=== PATIENT | female | born 1955 | race Asian ===

== ENCOUNTER 2018-04-28 17:47 | Emergency (ER) | payer OTHER ==
[~2018-04-28] VITALS: Ht 165.1 cm; Wt 68.0 kg
[2018-04-28 18:25] LABS: BASOPHILS % (AUTO) 0 % (0-10); EOSINOPHILS % (AUTO) 0 % (0-10); HEMATOCRIT 39 % (35-52); HEMOGLOBIN 12.4 G/DL (11.5-16.0); LYMPHOCYTES # (AUTO) 1.5 X 10^3 (1.0-4.0); LYMPHOCYTES % (AUTO) 11 % (12-44); MEAN CORPUSCULAR HEMOGLOBIN 28 PG (25-34); MEAN CORPUSCULAR HGB CONC 32 G/DL (32-36); MEAN CORPUSCULAR VOLUME 88 FL (80-99); MONOCYTES # (AUTO) 0.6 X 10^3 (0.0-1.0); MONOCYTES % (AUTO) 4 % (0-12); NEUTROPHILS # (AUTO) 11.9 X 10^3 (1.8-7.8); NEUTROPHILS % (AUTO) 85 % (42-75); PLATELET COUNT 226 10^3/uL (130-400); RED BLOOD COUNT 4.42 10^6/uL (4.35-5.85); RED CELL DISTRIBUTION WIDTH 12.8 % (10.0-14.5); WHITE BLOOD COUNT 14.1 10^3/uL (4.3-11.0)
--- NOTE | 2018-04-28 18:29 | ED GI ---
General Chief Complaint: Abdominal/GI Problems Stated Complaint: NAUSEA/VOMITING/HOT AND COLD FLASHES Nursing Triage Note: N/V/D STARTING TODAY ALONG WITH DIZZINESS. Sepsis Screen: No Definite Risk Source of Information: Patient Exam Limitations: No Limitations History of Present Illness Date Seen by Provider: Apr 28, 2018 Time Seen by Provider: 18:28 Initial Comments To ER with reports of nausea vomiting diarrhea starting today along with dizziness. This began this afternoon. Denies fevers or chills. She has some crampy abdominal pain which is present "not all the time" Timing/Duration: 1-2 Days Severity/Quality: Moderate, Cramping Location: Generalized Abdomen Radiation: No Radiation Activities at Onset: None Associated Symptoms: No Fever/Chills; Nausea/Vomiting Allergies and Home Medications Allergies Coded Allergies: No Known Drug Allergies (Unverified , 04/28/18) Home Medications No Active Prescriptions or Reported Meds Patient Home Medication List Home Medication List Reviewed: Yes Review of Systems Review of Systems Constitutional: see HPI EENTM: No Symptoms Reported Respiratory: No Symptoms Reported Cardiovascular: No Symptoms Reported Gastrointestinal: See HPI, Abdominal Pain; Denies Constipated; Diarrhea, Nausea , Vomiting Genitourinary: No Symptoms Reported Musculoskeletal: no symptoms reported Skin: no symptoms reported Psychiatric/Neurological: No Symptoms Reported Endocrine: No Symptoms Reported Hematologic/Lymphatic: No Symptoms Reported Past Yxsbqvp-Stodqi-Fdbruy Hx Patient Social History Alcohol Use: Denies Use Recreational Drug Use: No Smoking Status: Never a Smoker Recent Foreign Travel: No Contact w/Someone Who Travel: No Recent Infectious Disease Expo: No Past Medical History Surgeries: Yes Respiratory: No Cardiac: No Neurological: No Genitourinary: No Gastrointestinal: No Musculoskeletal: No Endocrine: No Integumentary: No Physical Exam Vital Signs Vital Signs - First Documented 04/28/18 17:53 Temp 97.4 Pulse 65 Resp 16 B/P (MAP) 136/60 (85) Pulse Ox 100 Capillary Refill : Less Than 3 Seconds Height/Weight/BMI Height: 5'5.00" Weight: 150lbs. oz. 68.960557xs; BMI Method:Stated General Appearance: WD/WN, no apparent distress HEENT: PERRL/EOMI, normal ENT inspection Neck: non-tender, full range of motion Respiratory: no respiratory distress, no accessory muscle use Gastrointestinal: normal bowel sounds, non tender, soft, other (abdomen is flat soft and nontender to palpation. Offered Levsin for pain control but she states her pain is "not that bad" and she doesn't want any medicine for the pain right now.) Extremities: normal range of motion, non-tender Neurologic/Psychiatric: alert, normal mood/affect, oriented x 3 Skin: normal color, warm/dry Progress/Results/Core Measures Results/Orders Lab Results Laboratory Tests Test 04/28/18 18:07 04/28/18 19:35 Range/Units White Blood Count 14.1 H 4.3-11.0 10^3/uL Red Blood Count 4.42 4.35-5.85 10^6/uL Hemoglobin 12.4 11.5-16.0 G/DL Hematocrit 39 35-52 % Mean Corpuscular Volume 88 80-99 FL Mean Corpuscular Hemoglobin 28 25-34 PG Mean Corpuscular Hemoglobin Concent 32 32-36 G/DL Red Cell Distribution Width 12.8 10.0-14.5 % Platelet Count 226 130-400 10^3/uL Mean Platelet Volume 10.0 7.4-10.4 FL Neutrophils (%) (Auto) 85 H 42-75 % Lymphocytes (%) (Auto) 11 L 12-44 % Monocytes (%) (Auto) 4 0-12 % Eosinophils (%) (Auto) 0 0-10 % Basophils (%) (Auto) 0 0-10 % Neutrophils # (Auto) 11.9 H 1.8-7.8 X 10^3 Lymphocytes # (Auto) 1.5 1.0-4.0 X 10^3 Monocytes # (Auto) 0.6 0.0-1.0 X 10^3 Eosinophils # (Auto) 0.0 0.0-0.3 10^3/uL Basophils # (Auto) 0.0 0.0-0.1 10^3/uL Neutrophils % (Manual) 86 % Lymphocytes % (Manual) 10 % Monocytes % (Manual) 4 % Eosinophils % (Manual) 0 % Basophils % (Manual) 0 % Band Neutrophils 0 % Blood Morphology Comment NORMAL Sodium Level 141 135-145 MMOL/L Potassium Level 3.6 3.6-5.0 MMOL/L Chloride Level 105 98-107 MMOL/L Carbon Dioxide Level 25 21-32 MMOL/L Anion Gap 11 5-14 MMOL/L Blood Urea Nitrogen 23 H 7-18 MG/DL Creatinine 0.69 0.60-1.30 MG/DL Estimat Glomerular Filtration Rate > 60 BUN/Creatinine Ratio 33 Glucose Level 124 H 70-105 MG/DL Calcium Level 9.2 8.5-10.1 MG/DL Corrected Calcium 8.9 8.5-10.1 MG/DL Total Bilirubin 0.2 0.1-1.0 MG/DL Aspartate Amino Transf (AST/SGOT) 29 5-34 U/L Alanine Aminotransferase (ALT/SGPT) 22 0-55 U/L Alkaline Phosphatase 59 40-136 U/L Total Protein 7.6 6.4-8.2 GM/DL Albumin 4.4 3.2-4.5 GM/DL Lipase 56 8-78 U/L Urine Color YELLOW Urine Clarity CLEAR Urine pH 8 5-9 Urine Specific Bath 1.010 L 1.016-1.022 Urine Protein NEGATIVE NEGATIVE Urine Glucose (UA) NEGATIVE NEGATIVE Urine Ketones NEGATIVE NEGATIVE Urine Nitrite NEGATIVE NEGATIVE Urine Bilirubin NEGATIVE NEGATIVE Urine Urobilinogen NORMAL NORMAL MG/DL Urine Leukocyte Esterase 1+ H NEGATIVE Urine RBC (Auto) NEGATIVE NEGATIVE Urine RBC NONE /HPF Urine WBC RARE /HPF Urine Crystals PRESENT H /LPF Urine Amorphous Sediment MOD TAYO PHOSPHATE H /LPF Urine Bacteria NEGATIVE /HPF Urine Casts NONE /LPF Urine Mucus NEGATIVE /LPF Urine Culture Indicated NO My Orders Orders - CHAPARRO PAYAN [employer] MASTER Cbc With Automated Diff (04/28/18 18:19) Comprehensive Metabolic Panel (04/28/18 18:19) Ua Culture If Indicated (04/28/18 18:19) Lipase (04/28/18 18:19) Iv Heplock-Insert (Order) (04/28/18 18:19) Ondansetron Injection (Zofran Injectio (04/28/18 18:30) Ns Iv 1000 Ml (Sodium Chloride 0.9%) (04/28/18 18:30) Manual Differential (04/28/18 18:07) Ct Abdomen/Pelvis W (04/28/18 18:50) Iohexol Injection (Omnipaque 350 Mg/Ml 1 (04/28/18 19:00) Contrast Received (Contrast Received) (04/28/18 19:00) Sodium Chloride Flush (Catheter Flush Sy (12/28/18 19:00) Ns (Ivpb) (Sodium Chloride 0.9% Ivpb Bag (04/28/18 19:00) Medications Given in ED Current Medications Medications Dose Ordered Sig/Gonsalo Route Start Time Stop Time Status Last Admin Dose Admin Iohexol 100 ml ONCE ONCE IV 04/28/18 19:00 04/28/18 19:01 DC 04/28/18 19:17 100 ML Ondansetron HCl 8 mg ONCE ONCE IVP 04/28/18 18:30 04/28/18 18:31 DC 04/28/18 18:29 8 MG Sodium Chloride 10 ml NEEDED PRN IV 04/28/18 19:00 04/28/18 19:17 10 ML Sodium Chloride 100 ml ONCE ONCE IV 04/28/18 19:00 04/28/18 19:01 DC 04/28/18 19:17 80 ML Vital Signs/I&O 04/28/18 17:53 Temp 97.4 Pulse 65 Resp 16 B/P (MAP) 136/60 (85) Pulse Ox 100 Blood Pressure Mean: 85 Departure Communication (Admissions) 2013-she states that she is feeling much better at this time and she is completely pain-free despite no pain medication given in the emergency room. We will discharged home with return precautions including returning to ER for worsening pain or fevers. Take nausea medication as needed. Impression Primary Impression: Nausea vomiting and diarrhea Disposition: HOME, SELF-CARE Condition: Stable Departure-Patient Inst. Decision time for Depature: 20:15 Referrals: NO,LOCAL PHYSICIAN (PCP) Primary Care Physician Patient Instructions: [id number] Add. Discharge Instructions: 1. Use the nausea medication as needed. Return to ER for any concerns All discharge instructions reviewed with patient and/or family. Voiced understanding. Scripts No Active Prescriptions or Reported Meds CHAPARRO PAYAN [employer] MASTER Apr 28, 2018 18:29
[2018-04-28] MEDS ORDERED: NS IV 1000 ML 1,000 ML IV SCH (18:30)
[2018-04-28] MEDS ORDERED: ONDANSETRON 4 MG/2 ML (SDV) Z0FRAN IVP ONE (18:30)
[2018-04-28 18:37] LABS: ALANINE AMINOTRANSFERASE 22 U/L (0-55); ALBUMIN 4.4 GM/DL (3.2-4.5); ALKALINE PHOSPHATASE 59 U/L (40-136); BILIRUBIN,TOTAL 0.2 MG/DL (0.1-1.0); BUN/CREATININE RATIO 33; CALCIUM 9.2 MG/DL (8.5-10.1); CARBON DIOXIDE 25 MMOL/L (21-32); CHLORIDE 105 MMOL/L (98-107); CREATININE SERUM 0.69 MG/DL (0.60-1.30); GFR ESTIMATED > 60; GLUCOSE 124 MG/DL (70-105); LIPASE 56 U/L (8-78); POTASSIUM 3.6 MMOL/L (3.6-5.0); SODIUM 141 MMOL/L (135-145); TOTAL PROTEIN 7.6 GM/DL (6.4-8.2)
[2018-04-28 18:53] LABS: BAND NEUTROPHILS 0 %; BASOPHILS % (MANUAL) 0 %; EOSINOPHILS % (MANUAL) 0 %; LYMPHOCYTES % (MANUAL) 10 %; MONOCYTES % (MANUAL) 4 %; NEUTROPHILS % (MANUAL) 86 %; RBC MORPH NORMAL
[2018-04-28] MEDS ORDERED: RECEIVED CONTRAST (Hold Metformin) IV SCH (19:00)
[2018-04-28] MEDS ORDERED: NS 100 ML (IVPB) BAG IV ONE (19:00)
[2018-04-28] MEDS ORDERED: IOHEXOL 350 MG/ML 100 ML (OMNIPAQUE 350) VIAL IV ONE (19:00)
[2018-04-28] MEDS ORDERED: CATHETER FLUSH 10 ML SYR IV PRN (19:00)
[2018-04-28 19:43] LABS: BILIRUBIN,URINE NEGATIVE (NEGATIVE); CLARITY,URINE CLEAR; COLOR,URINE YELLOW; GLUCOSE, URINE (UA) NEGATIVE (NEGATIVE); KETONES,URINE NEGATIVE (NEGATIVE); LEUKOCYTE ESTERASE ,URINE 1+ (NEGATIVE); NITRITE,URINE NEGATIVE (NEGATIVE); PH,URINE 8 (5-9); PROTEIN,URINE NEGATIVE (NEGATIVE); UROBILINOGEN,URINE NORMAL (NORMAL)
[2018-04-28 19:50] LABS: WBC,URINE RARE /HPF
[2018-04-28 19:51] LABS: AMORPHOUS SEDIMENT,UR MOD AMOR PHOSPHATE /LPF; BACTERIA,URINE NEGATIVE /HPF
[2018-04-28] MEDS ORDERED: RX-ONDANSETRON 4 MG ODT (ZOFRAN) PPK #4 PO STA (20:16)
[2018-04-28 20:27] VITALS: BP 109/49
--- NOTE | 2018-04-28 20:54 | Diagnostic Imaging Report ---
PROCEDURE: CT abdomen and pelvis with contrast. TECHNIQUE: Multiple contiguous axial images were obtained through the abdomen and pelvis after administration of intravenous contrast. INDICATION: Nausea, vomiting, diarrhea today, dizziness. CORRELATION STUDY: None. FINDINGS: LOWER THORAX: Minimal atelectasis suggested at the lung bases. No basilar infiltrate. LIVER: Mildly enlarged. Calcification of the right lobe of the liver likely of no significance. No definitive focal lesion. GALLBLADDER: Mildly distended but otherwise appearing unremarkable. Common bile duct within normal limits. Very slight prominent appearance about the central intrahepatic biliary tree. SPLEEN: Unremarkable. Small splenule in the hilum. PANCREAS: Unremarkable. ADRENAL GLANDS: Unremarkable. KIDNEYS: Normal configuration. No calcification or obstruction. ABDOMINAL AORTA: Mild plaque-like formation, nonaneurysmal. GASTROINTESTINAL TRACT: Stomach mildly distended with fluid. Question of slight gastric wall thickening. Small bowel also demonstrates few segments of mild wall thickening. No evidence for obstruction. There is mild severity fecal retention within the colon. Cecum sits low within the pelvis. The appendix cannot be visualized and therefore not cleared. URINARY BLADDER: Distended but otherwise unremarkable. REPRODUCTIVE: Apparent hysterectomy changes. OSSEOUS STRUCTURES: No acute abnormality. OTHER: None. IMPRESSION: 1. Suggestion of mild gastric wall thickening and slight hyperemia of a few loops of small bowel. No evidence for obstruction. Features may reflect nonspecific gastroenteritis. The appendix not visualized and therefore cannot be cleared. 2. Mild hepatomegaly. Dictated by: Dictated on workstation # [id number]
== END 2018-04-28 20:26 | disposition home or self-care (01) ==
LOC: ER 17:49
DX: R11.2 Nausea with vomiting, unspecified (principal); R19.7 Diarrhea, unspecified
CPT/HCPCS: 36415; 74177; 80053; 81000; 83690; 85007; 85027

== ENCOUNTER 2018-05-03 17:20 | Emergency (ER) | payer OTHER ==
[~2018-05-03] VITALS: Ht 165.1 cm; Wt 68.0 kg
--- NOTE | 2018-05-03 18:33 | ED General ---
General Chief Complaint: Abdominal/GI Problems Stated Complaint: DIZZY,HEADACHE,WEAK Nursing Triage Note: Pt ambulated to rm 5 w/o difficulty. Pt reports, "not feeling well." Pt c/o nausea, and stomach and head feeling "hot". Pt reports symptoms began today at approximately 1500. Pt denies pain. Pt reports the same thing happened last Tuesday and pt reports being seen here. Pt reports feeling better since when pt first got to ED. Nursing Sepsis Screen: No Definite Risk Source of Information: Patient Exam Limitations: Language Barrier History of Present Illness Date Seen by Provider: May 03, 2018 Time Seen by Provider: 18:09 Initial Comments The patient presents to ER by private conveyance with her and chief complaint that she is having for the past week some dizzy spells when she changes position rolls over in bed or stands up too suddenly. Sometimes she'll get nauseated like she wants to throw up but she does not throw up. She says her head will feel hot but no headache. She has no blurry vision just dizziness. She was seen in the ER for this and they did a workup to include laboratory and gave her some Zofran which she says helped with the nausea but does not think that the dizziness. She says a couple years ago a doctor in [facility] saw her for this and did some maneuvers which sound like Stefan's maneuvers and she said inserted for 2 years but now is back. She does not have a primary care doctor. She has no history of stroke and is on blood thinners. No history of A. fib or irregular heartbeat. No heart disease known. She's had a hysterectomy but no other known surgeries on her abdomen. Allergies and Home Medications Allergies Coded Allergies: No Known Drug Allergies (Unverified , 04/28/18) Home Medications No Active Prescriptions or Reported Meds Patient Home Medication List Home Medication List Reviewed: Yes Review of Systems Review of Systems Constitutional: No chills, No diaphoresis EENTM: No ear discharge, No hearing loss, No ear pain Respiratory: No cough, No hemoptysis, No short of breath Cardiovascular: No chest pain, No edema Gastrointestinal: No abdominal pain, No constipation, No diarrhea; nausea Past Etlaqai-Hmodhy-Gtnlit Hx Patient Social History Alcohol Use: Denies Use Recreational Drug Use: No 2nd Hand Smoke Exposure: No Recent Foreign Travel: No Contact w/Someone Who Travel: No Recent Infectious Disease Expo: No Physical Abuse: No Sexual Abuse: No Past Medical History Surgeries: Yes Respiratory: No Cardiac: No Neurological: No Genitourinary: No Gastrointestinal: No Musculoskeletal: No Endocrine: No Integumentary: No Physical Exam Vital Signs Capillary Refill : Less Than 3 Seconds Height, Weight, BMI Height: 5'5.00" Weight: 150lbs. oz. 68.511351es; BMI Method:Stated General Appearance: No Apparent Distress, WD/WN Eyes: Bilateral Eye Normal Inspection, Bilateral Eye PERRL, Bilateral Eye EOMI HEENT: PERRL/EOMI, Normal ENT Inspection, Pharynx Normal, Moist Mucous Membranes, TM Abnormal (L) (Mucoid effusion without loss of landmarks of the TM. ) Neck: Full Range of Motion, Normal Inspection, Non Tender, Supple Respiratory: Chest Non Tender, Lungs Clear, Normal Breath Sounds, No Accessory Muscle Use, No Respiratory Distress Cardiovascular: Regular Rate, Rhythm, No Edema, Normal Peripheral Pulses Gastrointestinal: Normal Bowel Sounds, No Organomegaly, Non Tender, Soft Extremity: Normal Capillary Refill, No Pedal Edema Neurologic/Psychiatric: Alert, Oriented x3, No Motor/Sensory Deficits, Normal Mood/Affect, medical doctor md II-XII Norm as Tested, Other (Negative tests for HINTS) Progress/Results/Core Measures Suspected Sepsis Recent Fever Within 48 Hours: No Infection Criteria Present: None New/Unexplained Altered Menta: No Sepsis Screen: No Definite Risk SIRS Temperature:97.0 Pulse: 58 Respiratory Rate: 12 Blood Pressure 129 /57 Mean: 81 Results/Orders Vital Signs/I&O Capillary Refill : Less Than 3 Seconds Blood Pressure Mean: 81 Progress Note : Time: 18:31 Progress Note By history and negative HINTS testing this does appear to be more peripheral. We 've offered to do [place] maneuvers with her but she says she knows what they are and they will just make her dizziness worse so we will send her home with a handout on Stefan's maneuver and a referral to ear nose and throat. We'll send her some meclizine as well as some more Zofran. Departure Impression Primary Impression: BPPV (benign paroxysmal positional vertigo) Qualified Codes: H81.10 - Benign paroxysmal vertigo, unspecified ear Disposition: HOME, SELF-CARE Condition: Stable Departure-Patient Inst. Decision time for Depature: 18:34 Referrals: DIANA PAZ MD NO,LOCAL PHYSICIAN (PCP) Primary Care Physician Patient Instructions: Vertigo (a Type of Dizziness) (DC), Vestibular Exercises Add. Discharge Instructions: Please review the handout exercises to perform these 10 times every time you have a dizzy spell to try and reduce symptoms. You can use meclizine for the dizziness sensation and Zofran every 6 hours for the nausea as necessary. Follow -up with Dr. Paz, ear nose and throat surgeon for further evaluation. All discharge instructions reviewed with patient and/or family. Voiced understanding. Scripts Meclizine HCl (Meclizine HCl) 25 Mg Tablet 25 MG PO Q6H PRN for DIZZINESS for 30 Days, #30 TAB 0 Refills Prov: JAVIER ALDRICH 05/03/18 Ondansetron (Ondansetron Odt) 4 Mg Tab.rapdis 4 MG PO Q6H PRN for NAUSEA/VOMITING, #8 TAB 0 Refills Prov: JAVIER ALDRICH 05/03/18 Copy Copies To 1: DIANA PAZ MD, TITUS J May 03, 2018 18:33
[2018-05-03] MEDS ORDERED: ONDA4TAB11 PO (18:42)
[2018-05-03] MEDS ORDERED: MECL-106 PO (18:42)
[2018-05-03] MEDS ORDERED: MECLIZINE 25 MG (ANTIVERT) TAB PO ONE (18:45)
[2018-05-03 19:04] VITALS: BP 123/59
== END 2018-05-03 19:04 | disposition home or self-care (01) ==
LOC: EDUNIT# 17:20 → ER 17:25
DX: H81.12 Benign paroxysmal vertigo, left ear (principal)